=== PATIENT | female | born 1970 | race Caucasian/White ===

== ENCOUNTER 2019-10-30 16:57 | Inpatient (IN) | payer OTHER ==
[~2019-10-30] VITALS: Ht 160 cm; Wt 124.7 kg
[~2019-10-30 16:57] MED LIST: CIPRO500 MG PO; INSULIN; LOSARTAN-HCTZ1 EAC3 PO
[2019-10-30 23:31] LABS: CHOLESTEROL 114 mg/dL (<200); HDL CHOLESTEROL 31 mg/dL (>40); LDL CHOLESTEROL 50 mg/dL (<100); TC:HDL 3.7 Ratio (Not establshd); TRIGLYCERIDE 169 mg/dL (<150); TROPONIN-I <0.06 ng/mL (<0.06); VLDL 34 mg/dL (<40)
[2019-10-30 23:41] LABS: SERUM ASSESSMENT Moderate Lipemia
[2019-10-30] MEDS ORDERED: LANTUS SOL100 UNIT/1 SUBQ (23:58)
[2019-10-31] MEDS ORDERED: METFORMIN HCL500 M3 PO (00:03)
[2019-10-31] MEDS ORDERED: EFFIENT10 MG PO (00:04)
[2019-10-31] MEDS ORDERED: NITROSTAT0.4 M1 (00:07)
[2019-10-31] MEDS ORDERED: TRAZODONE HCL50 MG PO (00:08)
[2019-10-31] MEDS ORDERED: BUPROPION XL150 MG PO (00:09)
[2019-10-31] MEDS ORDERED: ATORVASTATIN CA80 MG PO (00:10)
[2019-10-31] MEDS ORDERED: NOVOLOG100 UNIT/M (00:15)
[2019-10-31 00:38] VITALS: BP 132/74
[2019-10-31 05:25] VITALS: BP 112/58
[2019-10-31 07:37] LABS: ABSOLUTE NEUTROPHILS 2.6 thou/uL (1.4-8.2); BASOPHILS 0.7 % (0.0-2.0); EOSINOPHILS 4.1 % (0.0-3.0); HEMATOCRIT 38.9 % (37.0-47.0); HEMOGLOBIN 13.4 gm/dL (12.0-15.0); LYMPHOCYTES 42.6 % (24.0-44.0); MCH 32.2 pg (26.0-34.0); MCHC 34.4 g/dL (28.0-37.0); MCV 93.7 fL (80.0-100.0); MONOCYTES 6.2 % (1.0-8.0); PLATELET COUNT 189 thou/uL (150-400); POLYS 46.4 % (36.0-66.0); RBC 4.15 mil/uL (4.20-5.00); RDW 14.4 % (10.5-14.5); WBC 5.6 thou/uL (4.0-11.0)
[2019-10-31 07:48] LABS: PROTIME 9.5 Seconds (9.3-11.4)
[2019-10-31 07:55] LABS: ANION GAP 11 mmol/L (7-16); BUN 15 mg/dL (7-18); CALCIUM 8.7 mg/dL (8.5-10.1); CHLORIDE 99 mmol/L (98-107); CO2 24 mmol/L (21-32); CREATININE 0.9 mg/dL (0.6-1.0); GLUCOSE 231 mg/dL (74-106); MAGNESIUM 1.5 mg/dL (1.8-2.4); POTASSIUM 4.5 mmol/L (3.5-5.1); SODIUM 134 mmol/L (136-145); TROPONIN-I <0.06 ng/mL (<0.06)
--- NOTE | 2019-10-31 08:00 | NUR ---
RECEIVED REPORT FROM KAIT SANDHU RN IN [place], [place].PATIENT ARRIVED TO ROOM 200 A DIRECT ADMIT AROUND 2100.PATIENT A/O X 4.COMPLAIN OF PAIN UNDER HER BREAST THAT RADIATES TO HER BACK AND ALSO PAIN IN HER LEFT EAR AND LEFT NECK AND ALSO SHE HAS HEADACHE.TYLENOL DIDN'T WORK SO MORPHINE WAS GIVEN THIS MORNING ORDERED.NPO SINCE MIDNIGHT.MONITOR SHOWS SR.TROPONIN NEGATIVE.POC CONTINUED.
[2019-10-31 08:13] VITALS: BP 105/61
--- NOTE | 2019-10-31 08:59 | EKG ---
[facility] [place] [address] ELECTROCARDIOGRAM REPORT Name: LATANYA FALCON Room #: 200-I ADM IN M.R.#: [id number] Admission: 10/30/19 Attend Phys: Gigi Capellan MD Discharge: Date of : 70 Report #: [id number] THIS REPORT FOR: cc: FAM - No family physician/PCP FAM - No family physician/PCP Osmar Ch MD [facility] THIS REPORT FOR: //name// [facility] Test Date: 2019-10-31 Test Time: 07:35:21 Pat Name: LATANYA FALCON Department: Room: 200 I Gender: F Dental Prosthetist: Sheron MILES : 1970 Requested By: Wanda Giraldo Order Number: [id number] MD: Osmar Ch Measurements Intervals Nolan Rate: 87 P: 37 LA: 152 QRS: 6 QRSD: 101 T: 89 QT: 393 QTc: 473 Interpretive Statements Sinus rhythm Anterior infarct, old No previous ECG available for comparison Electronically Signed On 10-31-2019 8:57:33 CDT by Osmar Ch [email or web address] <ELECTRONICALLY SIGNED> By: Osmar Ch MD, FACC 10/31/19 0857 0735 Osmar Ch MD, [facility] /EPI
[2019-10-31 16:02] VITALS: BP 130/69
[2019-10-31] MEDS ORDERED: ASPIRIN325 PO (16:26)
[2019-10-31] MEDS ORDERED: MUCINEX600 MG PO ×2 (16:26→16:28)
[2019-10-31] MEDS ORDERED: LEVAQUIN 750 M750 MG PO (16:26)
[2019-10-31] MEDS ORDERED: PREDNISONE 10 M10 M1 PO (16:28)
[2019-10-31] MEDS ORDERED: VENTOLIN HFA 1818 GM INH (16:28)
[2019-10-31 16:35] VITALS: BP 130/69
--- NOTE | 2019-10-31 17:17 | NUR ---
ASSUMED CARE PT SHIFT CHANGE. ASSESSMENTS CHARTED. MEDS GIVEN PER JUL. PT ALERT AND ORIENTED.VSS. C/O CHEST PAIN. MANAGED WITH IV PAIN MEDS. PT TO HAVE CATH. NO INTERVENTION. PT RETURNED VERY UPSET, STATED THAT NO DOCTORS WERE LISTENING TO HER. COMMUNICATED WITH PT AND WAS ABLE TO CALM. PHYSICIAN SPOKE WITH PT, AND WORRIES EASED. BEDREST INITATED UPON RETURN FROM CATH. POST CATH VITALS ON PT CHART. DC ORDERS ACKNOWLEDGED AND IMPLEMENTED. IV REMOVED. TELE REMOVED. PT LEFT UNIT WITH ALL BELONGINGS.
--- NOTE | 2019-10-31 18:03 | CATHLAB ---
[facility] [place] [address] INVASIVE PROCEDURE REPORT Name: LATANYA FALCON Room #: 200-I DIS IN M.R.#: [id number] Admission: 10/30/19 Attend Phys: Gigi Capellan MD Discharge: 10/31/19 Date of : 70 Report #: [id number] THIS REPORT FOR: cc: FAM - No family physician/PCP FAM - No family physician/PCP Carmine Borja MD [facility] ~ APPROVED REPORT Study performed: 10/31/2019 11:35:50 Patient Details Patient Status: In-Patient Room #: 200 The patient is a 49 year-old female Event Personnel Carmine Borja Apprentice Electrician, Armando Laurent RN RN, Wilmar Landry Monitor, Mame Chappell RTR Scrub Procedures Performed Art Access - R femoral artery* Left Heart Cath w/or w/o Coronaries [id number] [facility] Aortogram Abdominal Peripheral Angio 315802 Hemostasis w/ Mynx 27853 Initial Mod Sed Same Phys/QHP Gr5y 879654 88911 Mod Sed Same Phys/QHP Ea 610858 Indication Chest pain Procedure Narrative The Right Groin^ was infiltrated with 1% Lidocaine subcutaneous anesthesia. A PINNACLE 6FR Sheath #[id number] sheath was inserted into the RFA^. Coronary angiography was performed using coronary diagnostic catheters. The right coronary system was accessed and visualized with a JR4 catheter. The left coronary system was accessed and visualized with a JL4 catheter. The left ventricle was accessed and visualized with a pigtail catheter. An aortogram of the abdominal aorta was performed. Closure device was deployed with a 6 Fr MYNX CONTROL 6F/7F L#[id number]. The patient tolerated the procedure well and there were no complications associated with the procedure. There was no hematoma. Intraoperative Conscious Sedation Sedation start time: 12:39 Case end Time: 13:15 Fentanyl 150 mcg Versed 4 mg [facility] [place] [address] INVASIVE PROCEDURE REPORT Name: EZEKIELLATANYA Room #: 200-I [facility]#: [id number] Admission: 10/30/19 Attend Phys: Gigi Capellan, Discharge: 10/31/19 Date of : 70 Report #: [id number] Fluoro Time: 1.35 minutes Dose: DAP 3990 cGycm2 444 mGy Contrast Type and Amount: Omnipaque 110 ml Hemodynamics The aortic pressure is 152/70 mmHg with a mean of 84 mmHg. The left ventricular pressure is 147/10 mmHg with a mean of mmHg. The left ventricular end diastolic pressure is 21 mmHg. Conclusion 1. Normal left jugular size and subtle inferior wall hypokinesis EF 50% range #2 left main mildly calcified giving rise to LAD and circumflex. #3 the LAD is also heavily calcified previously placed stents appear to be widely patent proximal and proximal mid mild in-stent restenosis diffusely diseased vessel distally to the apex. 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 There is no indication for coronary intervention not amenable to intervention. #6 abdominal aorta revealing no evidence of aneurysm mild plaquing renal arteries appear to be patent. Recommendations and plan: Continue aggressive risk factor modification. There is no indication for coronary intervention but close follow-up indicated. <ELECTRONICALLY SIGNED> By: Carmine Borja MD, FACC 10/31/191800 00 00 Carmine Borja MD, FACC /INF
[2019-11-01 01:08] LABS: GLYCOHEMOGLOBIN (HGB A1C) 8.2 % (4.8-5.6)
== END 2019-10-31 17:30 | disposition home or self-care (01) | DRG 287 ==
LOC: 2N 16:57 → 3N 16:58 → EDBD 21:59 → 2N 21:59
PROVIDERS: Nurse Practitioner Family; ADMIT Internal Medicine
PROC: 5A09357 Assistance with Respiratory Ventilation, Less than 24 Consecutive Hours, Continuous Positive Airway Pressure (ICD-10-PCS; principal; 2019-10-30)
PROC: 4A023N7 Measurement of Cardiac Sampling and Pressure, Left Heart, Percutaneous Approach (ICD-10-PCS; 2019-10-31)
PROC: 5A09357 Assistance with Respiratory Ventilation, Less than 24 Consecutive Hours, Continuous Positive Airway Pressure (ICD-10-PCS; 2019-10-31)
PROC: B2111ZZ Fluoroscopy of Multiple Coronary Arteries using Low Osmolar Contrast (ICD-10-PCS; 2019-10-31)
PROC: B4101ZZ Fluoroscopy of Abdominal Aorta using Low Osmolar Contrast (ICD-10-PCS; 2019-10-31)
DX: I25.119 Atherosclerotic heart disease of native coronary artery with unspecified angina pectoris (principal); Z68.42 Body mass index [BMI] 45.0-49.9, adult; K50.90 Crohn's disease, unspecified, without complications; I10 Essential (primary) hypertension; E78.5 Hyperlipidemia, unspecified; G47.33 Obstructive sleep apnea (adult) (pediatric); E66.9 Obesity, unspecified; E11.9 Type 2 diabetes mellitus without complications; G89.29 Other chronic pain; F32.9 Major depressive disorder, single episode, unspecified; F41.9 Anxiety disorder, unspecified; G47.00 Insomnia, unspecified; M79.7 Fibromyalgia; I25.2 Old myocardial infarction; Z99.81 Dependence on supplemental oxygen; Z95.5 Presence of coronary angioplasty implant and graft; Z90.49 Acquired absence of other specified parts of digestive tract; Z98.891 History of uterine scar from previous surgery; Z82.49 Family history of ischemic heart disease and other diseases of the circulatory system; Z88.5 Allergy status to narcotic agent; Z72.89 Other problems related to lifestyle; Z87.891 Personal history of nicotine dependence; Z79.4 Long term (current) use of insulin; Z79.899 Other long term (current) drug therapy
CPT/HCPCS: 10081